=== PATIENT | female | born 1985 | race Caucasian/White ===

== ENCOUNTER 2017-02-12 17:34 | Emergency (ER) | payer SELFPAY ==
[2017-02-12 18:21] VITALS: BP 117/76
== END 2017-02-12 21:39 | disposition left against medical advice (07) ==
LOC: ED 17:34
DX: N93.9 Abnormal uterine and vaginal bleeding, unspecified (principal); Z53.21 Procedure and treatment not carried out due to patient leaving prior to being seen by health care provider